=== PATIENT | male | born 1990 | race Caucasian/White ===

== ENCOUNTER 2017-11-25 19:17 | Emergency (ER) | payer BC ==
--- NOTE | 2017-11-25 20:29 | EDM.PDOC ---
ED HPI GENERAL MEDICAL PROBLEM - General Chief Complaint: General Stated Complaint: DOG BITE/SCRATCH Time Seen by Provider: 11/25/17 19:30 Source of Information: Reports: Patient History Limitations: Reports: No Limitations - History of Present Illness INITIAL COMMENTS - FREE TEXT/NARRATIVE: Patient is a 27 year old man who was trying to break up a dog fight between his dog and a neighbor's dog. He has abrasions on his chest and legs and it bit his left great toe. It is sore but has bled a lot. He needs a tetanus shot. No other injuries or complaints. Onset: Today Onset Date: 11/25/17 Onset Time: 19:00 Duration: Minutes: (30) Location: Reports: Lower Extremity, Left Quality: Reports: Sharp Severity: Moderate Improves with: Reports: Immobilization Worsens with: Reports: Movement Context: Reports: Trauma (Dogbite) Associated Symptoms: Reports: No Other Symptoms LEFT 1ST TOE Pain Score (Numeric/FACES): 3 - Related Data Allergies Allergy/AdvReac Type Severity Reaction Status Date / Time No Known Allergies Allergy Verified 11/25/17 19:25 Home Meds: Home Meds NK [No Known Home Meds] 11/25/17 [History] ED ROS GENERAL - Review of Systems Review Of Systems: See Below Constitutional: Reports: No Symptoms HEENT: Reports: No Symptoms Respiratory: Reports: No Symptoms Cardiovascular: Reports: No Symptoms Endocrine: Reports: No Symptoms GI/Abdominal: Reports: No Symptoms : Reports: No Symptoms Musculoskeletal: Reports: Foot Pain Skin: Reports: Wound (Dog bite left great toe.) Neurological: Reports: No Symptoms Psychiatric: Reports: No Symptoms ED EXAM, GENERAL - Physical Exam Exam: See Below Exam Limited By: No Limitations General Appearance: Alert, WD/WN, No Apparent Distress Eye Exam: Bilateral Eye: EOMI, Normal Fundi, Normal Inspection Ears: Normal External Exam, Normal Canal, Hearing Grossly Normal, Normal TMs Ear Exam: Bilateral Ear: Auricle Normal, Canal Normal, TM normal Nose: Normal Inspection, Normal Mucosa, No Blood Throat/Mouth: Normal Inspection, Normal Lips, Normal Teeth, Normal Gums, Normal Oropharynx, Normal Voice, No Airway Compromise Head: Atraumatic, Normocephalic Neck: Normal Inspection, Supple, Non-Tender, Full Range of Motion Respiratory/Chest: No Respiratory Distress, Lungs Clear, Normal Breath Sounds, No Accessory Muscle Use, Chest Non-Tender Cardiovascular: Normal Peripheral Pulses, Regular Rate, Rhythm, No Edema, No Gallop, No JVD, No Murmur, No Rub GI/Abdominal: Normal Bowel Sounds, Soft, Non-Tender, No Organomegaly, No Distention, No Abnormal Bruit, No Mass Extremities: Other (Abrasions left leg and flap dog bite on left great toe.) Neurological: Alert, Oriented, CN II-XII Intact, Normal Cognition, Normal Gait, Normal Reflexes, No Motor/Sensory Deficits Psychiatric: Normal Affect, Normal Mood Skin Exam: Wound/Incision (Abrasion left chest wall, abrasions left upper and lower leg and flap laceration/dogbite on end of left great toe.) Lymphatic: No Adenopathy Course - Vital Signs Text/Narrative:: Unremarkable ED course. The abrasions and dogbite were cleaned and soaked in sterile saline and hibiclens and then the abrasions were treated with antibiotic ointment and the dogbite was dressed with silvadene, a nonstick dressing and gauze. He will be put on Augmentin 875 mg po bid x 10 days, #20. He was given a tetanus shot. He will follow up with Dr. Ceja in 2 days to inspect the wound and to see if any debridement needs to be done. Last Recorded V/S: Last Vital Signs Temp 36.6 C 11/25/17 19: Pulse 96 11/25/17 19:17 Resp 20 11/25/17 19:17 BP 143/94 H 11/25/17 19: Pulse Ox 97 11/25/17 19:17 Departure - Departure Time of Disposition: 20:40 Disposition: Home, Self-Care 01 Condition: Good Clinical Impression: Dog bite of toe - Discharge Information Instructions: Animal Bite, [id number], Laceration Care, Adult Referrals: PCP,None [Primary Care Provider] - Forms: ED Department Discharge Additional Instructions: Redress the wound daily after cleaning it. Use the silvadene until the wound is healed. See Dr. Ceja is on Sunday to overlook the wound, see the biology adjunct instructor or orthopedist when they come here next. Take the antibiotic twice day for the next 10 days. Look for signs and symptoms of infection, redness, yellowish drainage, fever, wound is hot to the touch. You need to be seen as soon as you can if this happens. If you have any questions call [phone] and the clinic at [phone].
[2017-11-25] MEDS ORDERED: Diphtheria,Pertussis(Acell),Tetanus Vaccine 0.5 ML SDV inactive IM ONE (21:55)
[2017-11-25] MEDS ORDERED: Silver Sulfadiazine 1% Crm 50 GM Tube TOP ONE (21:55)
[2017-11-25] MEDS ORDERED: Amoxicillin/Clavulanate K 875-125 MG Tab ONE (22:00)
== END 2017-11-25 20:20 | disposition home or self-care (01) ==
LOC: LB.ED 19:17
DX: S91.152A Open bite of left great toe without damage to nail, initial encounter (principal); W54.0XXA Bitten by dog, initial encounter; S20.312A Abrasion of left front wall of thorax, initial encounter; S70.312A Abrasion, left thigh, initial encounter; S80.812A Abrasion, left lower leg, initial encounter; Z23 Encounter for immunization
CPT/HCPCS: 12001; 90471; 90715; 99283-25; A9270-GY

== ENCOUNTER 2021-02-04 17:13 | Emergency (ER) | payer BC ==
[2021-02-04] MEDS ORDERED: Methocarbamol 500 MG Tab ONE (18:00)
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
== END 2021-02-04 18:08 | disposition home or self-care (01) ==
LOC: LB.ED 17:13
DX: S16.1XXA Strain of muscle, fascia and tendon at neck level, initial encounter (principal); S46.912A Strain of unspecified muscle, fascia and tendon at shoulder and upper arm level, left arm, initial encounter; W22.09XA Striking against other stationary object, initial encounter
CPT/HCPCS: 72040; 72072; 99284; A9270

== ENCOUNTER 2022-03-17 19:05 | Emergency (ER) | payer BC ==
[2022-03-17] MEDS ORDERED: cefTRIAXone 1 GM Vial IM ONE (19:37)
[2022-03-17] MEDS ORDERED: cefTRIAXone 1 GM Vial ONE (19:50)
[2022-03-17] MEDS ORDERED: Amoxicillin 500 MG Cap ONE (20:00)
[2022-03-17] MEDS ORDERED: predniSONE 10 MG Tab ONE (20:00)
== END 2022-03-17 20:05 | disposition home or self-care (01) ==
LOC: LB.ED 19:05
DX: J06.9 Acute upper respiratory infection, unspecified (principal); H65.03 Acute serous otitis media, bilateral
CPT/HCPCS: 96372; 99282; A9270-GY; J0696; J7512

== ENCOUNTER 2022-05-12 17:40 | Emergency (ER) | payer BC ==
[2022-05-12] MEDS ORDERED: Sodium Chloride 0.9% 10 ML Syringe FLUSH PRN (17:57)
[2022-05-12 18:12] LABS: ESTIMATED GFR 90 mL/min (>60)
== END 2022-05-12 18:50 | disposition home or self-care (01) ==
LOC: LB.ED 17:40
DX: R07.89 Other chest pain (principal); Z79.899 Other long term (current) drug therapy
CPT/HCPCS: 36415; 80048; 84484; 85027; 85379; 93005; 99285